=== PATIENT | female | born 1980 | race Caucasian/White ===

== ENCOUNTER 2022-08-22 18:47 | Emergency (ER) | payer SELFPAY ==
[~2022-08-22] VITALS: Ht 167.6 cm; Wt 87.0 kg
[2022-08-22] MEDS ORDERED: IBUPROFEN 400MG TABLET PO ONE (20:00)
[2022-08-22] MEDS ORDERED: IBUP-2028 MT (20:11)
[2022-08-22 20:32] VITALS: BP 132/87
== END 2022-08-22 20:43 | disposition home or self-care (01) ==
LOC: ER 18:47
DX: M25.511 Pain in right shoulder (principal); M25.561 Pain in right knee; V49.59XA Passenger injured in collision with other motor vehicles in traffic accident, initial encounter; Y93.89 Activity, other specified; Y92.89 Other specified places as the place of occurrence of the external cause; Y99.8 Other external cause status
CPT/HCPCS: 73030; 73562; 99284